=== PATIENT | male | born 1980 | race Caucasian/White ===

== ENCOUNTER 2023-10-11 14:40 | Emergency (ER) | payer BC, SELFPAY ==
[2023-10-11 14:43] VITALS: BP 110/72
--- NOTE | 2023-10-11 15:54 | ED.GENMED ---
History of Present Illness
General
Chief Complaint: Foreign Body Removal
Source: patient
Exam Limitations: none
Time Seen by Provider: 10/11/23 15:47
Nursing documentation reviewed up to this point in time: agreed with
History of Present Illness
History of Present Illness:
Accidentally nailed left thumb to a wood board using nail gun. Incident occurred just [employer]. Brought to ED by neighbor.
Past History
Past History
ED Past Medical History: None
ED Past Surgical History: None
Social History
Tobacco: Non-smoker
Alcohol: None
Drug: None
Personal: Other (Engaged)
Living: with family
Employment: Employed
Family History
Family History: Other
Review of Systems
Review of Systems
Allergies reviewed?: Yes
All Other Systems: ROS reviewed and negative except as documented in HPI and ROS
Constitutional: Reports no symptoms
Musculoskeletal: Reports joint pain (pain to left thumb, nail thru thumb)
Skin: Reports no symptoms (nail thru left thumb)
Neurological: Reports no symptoms
Psychiatric: Reports no symptoms
Phy Exam
General Physical Exam
General Presentation: well appearing and no apparent distress
General age: appears stated age
General Skin: warm and dry
General Habitus: normal
General Mental: alert
Musculoskeletal Exam
Musculoskeletal Exam: full ROM and neuro vasc intact
Skin Exam
Skin Exam: normal color, warm/dry, no rash and other (Nail thru left distgal thumb, attached to piece of wood)
Psychiatric Exam
Psychiatric Exam: normal mood/affect
Course
Orders/Labs/Results
Orders:
Orders
10/11/23 15:54
Tetanus/Diphth/Acelpertussis [Adacel] 0.5 ml IM .ONCE ONE
Thumb/Finger(s) 2 View Lt [CR Finger(s)/thumb Min 2 Vw Lt] Urgent
Comment:
Reason For Exam: nail thru thumb
10/11/23 16:18
Thumb/Finger(s) 2 View Lt [CR Finger(s)/thumb Min 2 Vw Lt] Urgent
Comment:
Reason For Exam: post FB removal.
10/11/23 16:32
Cephalexin Monohydrate [Keflex] 500 mg PO NOW STA
Vital Signs
Initial and Last Documented VS:
Initial Vital Signs
Temp Pulse Resp BP Pulse Ox
98.2 F 61 19 110/72 100
10/11/23 14:43 10/11/23 14:43 10/11/23 14:43 10/11/23 14:43 10/11/23 14:43
Last Documented Vital Signs
Temp Pulse Resp BP Pulse Ox
98.2 F 61 19 110/72 100
10/11/23 14:43 10/11/23 14:43 10/11/23 14:43 10/11/23 14:43 10/11/23 14:43
Procedures
Foreign Body Removal-Skin
Wound explored and foreign body removed?: Yes
Anesthesia: 1% lidocaine (Digital block)
Foreign body removed using: forceps
Foreign body removed: completely (No bone involvement.)
*Radiology
Radiology exam reviewed: radiology read reviewed
*Pulse Oximetry
Patient hypoxic: no
*Critical Care Note
Total Time (30-74mins, 75-104mins- exclusive of procedures): Not Applicable
Update Note
Update Note:
Patient to ED with soft tissue foreign body left distal thumb. Accidentally shot nail into thumb and piece of wood using nail gun. xray reviewed, no bone involvement. Foreign body easily removed by pulling on nail. Post removal film without any
bone injury. Placed on Keflex. He will continue BID x 1 week, BID wound care, follow up with PCP
ED Attending Note
-
Portions of this chart may have been created with voice recognition software.� Occasional wrong word or��sound alike� substitutions may have occurred due to the inherent limitations of voice recognition software.
Discharge Plan
Departure
Patient Disposition: Home (Routine Discharge)
Date of Disposition: 10/11/23
Time of Disposition: 16:37
Patient with high blood pressure during this ER visit?: No
Condition: Good
Covid-19: Not Applicable
Discharge Problem:
Foreign body of left thumb
Instructions: Foreign Body in Skin (DC), Wound Care ED
Prescriptions:
New
cephalexin 500 mg capsule
500 mg PO BID 7 Days Qty: 14 0RF
No Action
ondansetron 4 MG tablet,disintegrating
4 mg PO TIDPRN PRN (Reason: nausea) Qty: 20 0RF
Referrals:
Jaylan Mcdowell MD [Family Provider] - Follow up in 2-3 days
Interventions
Interventions:
*Risk Screen - Suicide Last Done: 10/11/23 14:43
*General Assessment Last Done: 10/11/23 14:43
*Neglect/Abuse Screening Last Done: 10/11/23 14:43
Discharge Date and Time
Print Language: SINHALA
[2023-10-11] MEDS: KEFLEX 500 MG PO (16:44)
[2023-10-11 16:46] VITALS: BP 102/62
[2023-10-11 16:53] VITALS: BP 102/62
== END 2023-10-11 16:54 | disposition home or self-care (01) ==
LOC: EMR 14:40
PROVIDERS: EMERGENCY PHYSICIAN Emergency Medicine; FAMILY PHYSICIAN Family Medicine
DX: S61.042A Puncture wound with foreign body of left thumb without damage to nail, initial encounter (principal); W29.4XXA Contact with nail gun, initial encounter
CPT/HCPCS: 64450; 99284; 73140

== ENCOUNTER → 2024-08-21 17:03 | Outpatient (REF) | payer BC, SELFPAY | LOC: RAD 17:03 | PROVIDERS: ATTENDING PHYSICIAN Family Medicine | DX: S86.899A Other injury of other muscle(s) and tendon(s) at lower leg level, unspecified leg, initial encounter (principal) | CPT/HCPCS: 73590 ==

== ENCOUNTER → 2025-01-30 16:23 | Outpatient (REF) | payer BC, SELFPAY | LOC: RAD 16:23 | PROVIDERS: ATTENDING PHYSICIAN Internal Medicine; FAMILY PHYSICIAN Family Medicine | DX: R79.89 Other specified abnormal findings of blood chemistry (principal) | CPT/HCPCS: 76770 ==

== ENCOUNTER → 2025-03-12 06:57 | Outpatient (REF) | payer BC, SELFPAY | LOC: RAD 06:57 | PROVIDERS: ATTENDING PHYSICIAN Internal Medicine; FAMILY PHYSICIAN Family Medicine | DX: R79.89 Other specified abnormal findings of blood chemistry (principal); E78.2 Mixed hyperlipidemia | CPT/HCPCS: 93975 ==